=== PATIENT | female | born 1940 | race Caucasian/White ===

== ENCOUNTER 2016-12-20 07:46 | Inpatient (IN) | payer OTHER, MEDICARE ==
[~2016-12-20] VITALS: Ht 152.4 cm; Wt 79.2 kg
--- NOTE | ~2016-12-20 | HP ---
Unit #: [id number] #: [id number] Patient: JOEL FAJARDO [id number] [address] [address] [id number] I MR#: [id number] NAME: JOEL FAJARDO. ROOM: [facility] Age: 76 Sex: F Admission Date: 12/20/2016 : 1940 Attending Physician: Maksim Rubin M.D. Primary Care Physician: Bob Mercado M.D. HISTORY AND PHYSICAL HISTORY OF PRESENT ILLNESS This is a 76-year-old white female who presented to her primary care physician's office yesterday for routine visit. She had a recent complaint of substernal "chest discomfort" that was associated with dyspnea that lasted for a few minutes, up to 30 minutes. It has occurred off and on for the past six weeks. She reports exertional dyspnea when walking to her mailbox. She has palpitations, but no dizziness. EKG was done in the primary care physician's office that was abnormal. The EKG was reviewed by Dr. Rubin and collectively and he agreed that the patient needed to be admitted for further evaluation. From a cardiac standpoint the patient has had no prior cardiac history or testing. She reports a history of hypertension, hyperlipidemia and a remote history of nicotine abuse as risk factors. She also lives a sedentary lifestyle because of chronic back pain. She states she is unable to stand for any length of time. Her initial troponin is negative. Electrocardiogram shows no acute ischemic changes. Rhythm strip showed bigeminal premature ventricular complexes. PAST MEDICAL HISTORY 1. Two-dimensional echocardiogram 06/26/2011 shows an ejection fraction equal to 60%-65% with mild concentric left ventricular hypertrophy. There is mild mitral regurgitation and mild tricuspid regurgitation. Right ventricular systolic pressure 40 mmHg. 2. Hypertension. 3. Hyperlipidemia. 4. Obstructive sleep apnea, not on CPAP. 5. Chronic back pain. Gastroesophageal reflux disease. 6. Former smoker. PAST SURGICAL HISTORY 1. Hernia repair. 2. Cataract extraction. 3. Cholecystectomy. SOCIAL HISTORY The patient is . She quit smoking in 1998. She denies illicit drug and alcohol use. FAMILY HISTORY Negative for coronary artery disease. ALLERGIES No known drug allergies. Unit #: [id number] #: [id number] Patient: JOEL FAJARDO CURRENT MEDICATIONS 1. Protonix 40 mg daily, 2. Aspirin 81 mg daily at nighttime. 3. Multivitamin 1 tablet daily. 4. Aspirin 325 mg p.r.n. headache and back pain. 5. Norvasc 5 mg daily. 6. Carvedilol 6.25 mg b.i.d. 7. Hydralazine 25 mg b.i.d. 8. Lipitor 20 mg at nighttime. 9. Furosemide 20 mg 1-2 tablets p.r.n. swelling. 10. Risedronate 150 mg monthly. 11. Zyrtec 10 mg daily p.r.n. REVIEW OF SYSTEMS CONSTITUTIONAL: Negative for fever or chills. Has had no weight gain or weight loss. HEENT: No headache. No vision changes. No difficulty swallowing. No dizziness. CARDIOVASCULAR: Has chest discomfort as described in history of present illness. Reports palpitations. Denies paroxysmal nocturnal dyspnea or orthopnea. No syncope or near syncope. RESPIRATORY: Has dyspnea on exertion and that accompanies chest pain. No cough or hemoptysis. GASTROINTESTINAL: No abdominal pain, nausea, vomiting. No constipation. No melena. EXTREMITIES: Negative for lower extremity edema. PHYSICAL EXAMINATION GENERAL: This is a pleasant 76-year-old obese white female who is in on acute respiratory distress. VITALS: Blood pressure 136/104, heart rate 92, temperature 98.4, BMI 33. NECK: Trachea midline. No thyromegaly or carotid bruits. No jugular venous distension. LUNGS: Clear without rales, rhonchi or wheezes. HEART: S1 and S2. Heart sounds are normal. No murmurs or rubs or clicks. Regular rate and rhythm with occasional ectopic beat. ABDOMEN: Soft, obese, with bowel sounds present. No organomegaly. EXTREMITIES: Without leg edema. SKIN: Warm and dry. NEUROLOGIC: She is awake, alert and oriented. There are no focal weaknesses. DIAGNOSTIC STUDIES LABORATORY: Glucose 101, BUN 15, creatinine 0.9, sodium 141, potassium 3.9, troponin less than 0.03. Cholesterol 126, triglycerides 120, LDL 59, HDL 43, TSH 2.39. White blood cell count 11.7, hemoglobin 15.6, hematocrit 47.3, platelet count 198. CARDIOVASCULAR: Electrocardiogram normal sinus rhythm with a rate of 76 beats per minute, with questionable left atrial enlargement. ASSESSMENT 1. Exertional dyspnea. 2. Chest pain, probably ischemic in origin. 3. Hypertension. 4. Hyperlipidemia. 5. Chronic back pain. Obstructive sleep apnea. 6. Bigeminal premature ventricular complexes. Unit #: [id number] #: [id number] Patient: JOEL FAJARDO PLAN 1. The patient's symptoms are worrisome for ischemic heart disease. Given multiple risk factors, exertional dyspnea and chest discomfort, will advise the patient to undergo cardiac catheterization to evaluate her coronary anatomy. This has been discussed with the patient and her , including the risks and benefits and they are agreeable. Will schedule for today. 2. Will obtain two-dimensional echocardiogram to evaluate left ventricular systolic function. Lipid levels are controlled. 3. TSH is normal. 4. Further recommendations pending results of cardiac catheterization. Dictated by Carlin Lovell A.P.R.N. for Pavan Mackey M.D. AEP/gz TD: 12/20/2016 14:35 JOB #: [id number] CC: [facility] Bob Mercado M.D. HISTORY AND PHYSICAL Page 1 of 1 X Carlin Lovell APRN HISTORY AND PHYSICAL
--- NOTE | ~2016-12-20 | DS ---
Unit #: [id number] #: [id number] Patient: JOEL FAJARDO [id number] [address] [address] [id number] I MR#: [id number] NAME: JOEL FAJARDO. ROOM: [facility] Age: 76 Sex: F Admission Date: 12/20/2016 : 1940 Discharge Date: 12/25/2016 Attending Physician: Maksim Rubin M.D. Primary Care Physician: Bob Mercado M.D. DISCHARGE SUMMARY DISCHARGE DIAGNOSES 1. Chest pain, ruled out for acute coronary syndrome. 2. Left main coronary artery stenosis. 3. Left groin hematoma. DISCHARGE TRANSFER MEDICATIONS 1. Multivitamin one tab p.o. daily. 2. Aspirin 81 mg p.o. daily. 3. Oxycodone/acetaminophen 5/325 one to two tabs p.o. q.4 hours p.r.n. pain. 4. Protonix 40 mg p.o. daily. 5. Isosorbide mononitrate 30 mg p.o. daily. 6. Atorvastatin 80 mg p.o. daily at bedtime. 7. Carvedilol 6.25 mg p.o. b.i.d. 8. Zofran 4 mg IV q.4 p.r.n. nausea. 9. Mycostatin powder 15 g apply topical twice daily. 10. Claritin 10 mg p.o. daily. 11. Nitroglycerin 0.4 mg sublingual q.5 minutes x3 as needed p.r.n. for chest pain. 12. The patient's anticoagulation is currently on hold secondary to large left-sided hematoma. HOSPITAL COURSE This is a very pleasant 76-year-old female, who initially presented after seeing her primary care physician for a routine visit. She had complaints of substernal chest discomfort that was associated with dyspnea as well as exertional angina. Her episodes were lasting a few minutes up to 30 minutes. She had an EKG performed in the primary care's office that was abnormal. The EKG was reviewed by Dr. Rubin and agreed that the patient should be admitted for further evaluation. She had no prior cardiac history. The patient does have a history of hypertension, hyperlipidemia, and a remote history of nicotine abuse. Her symptoms were highly concerning for coronary artery disease and therefore the patient was advised to undergo cardiac catheterization to evaluate her coronary anatomy. She also had a 2D echocardiogram which showed a normal left ventricular systolic function of about 60%. The patient underwent cardiac catheterization by Dr. Recio on December 20, 2016, which showed a LV EF of 60%, [id number] calcification of all coronary arteries, 75% eccentric stenosis caused by plaque rupture in the distal left main. LAD, left circumflex, and right coronaries show no significant fixed stenosis. She was advised to consider coronary artery bypass surgery and refused any transfer to [facility] and wanted to be transferred to [facility]. In the interim, she was continued on aspirin and Lovenox as well as high-dose statin therapy and beta joelle. The following day Unit #: [id number] #: [id number] Patient: JOEL FAJARDO on December 21, she began to develop some left groin pain. Ultrasound and CT imaging were obtained which showed her to have a large left groin hematoma measuring maximally about 13.5 cm. Serial hemoglobin values have been trending downward. Vascular surgery was consulted to evaluate the patient and have reviewed all their scans. There was no suggestion of pseudoaneurysm. Ultrasound suggested no flow, so they suspect the hematoma will begin to resolve and the values will stabilize. Currently, her anticoagulation is on hold. At present, she is resting comfortably. Her pain has lessened in the groin area. She does have significant bruising noted on the lower abdomen. Her cardiac rhythm has been stable, and she has had no further complaints of chest pain. The patient is deemed stable for transfer today to [facility]. [facility] [address] Dr. Francisco, Vascular. DIAGNOSTIC STUDIES LABORATORY: Glucose 97, BUN 28, creatinine 0.7, sodium 136, potassium 4.4, chloride 105, CO2 of 29. Albumin 3.7. Troponins remain negative throughout her hospitalization. Cholesterol 126, triglycerides 120, LDL 59, HDL 43. TSH 2.39. Last coags were 10.9, INR 1. Hemoglobin 8, hematocrit 24, WBC 7.6, platelet count 148,000. Of note, her hemoglobin has remained stable for the last 12-18 hours and she has required no blood transfusions to this point. IMAGING: Ultrasound shows complex mass on the soft tissues of the left lower quadrant of the abdomen measuring up to 13.5 cm, most consistent with keeping with hematoma. CT of the abdomen and pelvis shows a large hematoma in the left groin extending medially into the subcutaneous fat area. Dimensions are at least 13.9 x 8.4 x 6.7. Status post cholecystectomy and prior abdominal hernia repair. Left renal cyst. Benign cyst in the right adnexa, previously evaluated with CT and ultrasound. Chronic compression fracture of T11. CARDIOVASCULAR: EKG: Last EKG shows normal sinus rhythm, rate of 76 beats per minute, possible left atrial enlargement, QTc interval 427 ms, no acute ischemic change is noted. PHYSICAL EXAMINATION GENERAL: This is a very pleasant 76-year-old female who appears older than her stated age. She is in no acute distress. VITAL SIGNS: Temperature is 97.9, respiratory rate 18-20, pulse 70s to 80s, blood pressure 115/43 to 127/48. BMI is 33. HEENT: Head is atraumatic, normocephalic. Pupils are equal and round. Mucous membranes are moist. NECK: Trachea is midline. No lymphadenopathy. No thyromegaly. Carotid upstrokes are normal. CARDIOVASCULAR: S1, S2. No murmur, gallop, or rub. LUNGS: Clear to auscultation. No adventitious breath sounds. No rales. No rhonchi. No wheezes. ABDOMEN: Obese, soft. Multiple areas of bruising noted. There is still some residual firmness in the left lower abdominal area secondary to hematoma. EXTREMITIES: Pulses are palpable. No clubbing, cyanosis, or edema. DISCHARGE INSTRUCTIONS Unit #: [id number] #: [id number] Patient: JOEL FAJARDO Patient has been seen and evaluated and has been deemed stable for discharge today for transfer to [facility] for recommended coronary artery bypass graft surgery. She has had no further complaints of chest pain. Cardiac rhythm has been stable here. Blood pressures are stable. She did develop a left groin large hematoma. This was evaluated by vascular surgery prior to discharge. The patient's hemoglobin has remained stable for the last 12-18 hours, and she has not required any blood transfusion. Discharge medications were reviewed. Her anticoagulation is currently on hold at this point, other than a baby aspirin. All this information has been reviewed with the family and the patient. She is agreeable and willing to proceed with transfer. I will notify the nurse practitioner of [facility] of her upcoming arrival in order to put orders in as well as consult CV surgery. Dictated by... Zia Oh TD: 12/25/2016 09:51 JOB #: [id number] DISCHARGE SUMMARY Page 1 of 1 X Peace Sterling APRN X DISCHARGE SUMMARY
--- NOTE | ~2016-12-20 | CO ---
Unit #: [id number] #: [id number] Patient: JOEL FAJARDO [id number] [address] [address] [id number] I MR#: [id number] NAME: JOEL FAJARDO. ROOM: [facility] Age: 76 Sex: F Admission Date: 12/20/2016 : 1940 Attending Physician: Maksim Rubin M.D. Primary Care Physician: Bob Mercado M.D. Consultation Date: 12/24/2016 CONSULTATION REPORT REASON FOR CONSULT Left groin hematoma. HISTORY OF PRESENT ILLNESS This is a 76-year-old female with a past medical history of chest discomfort who presented to the hospital. She ultimately underwent a heart catheterization via left groin approach on Tuesday, December 20, 2016. On the following day, Wednesday, December 21, 2016, she notified her nurse that she was having some left groin pain. Ultrasound and CT imaging was subsequently obtained which showed her to have a large left groin hematoma maximally measuring about 13.5 cm. Since then, serial hemoglobin values have been trending downward. She currently denies any pain from the hematoma other than occasionally when changing positions. PAST MEDICAL HISTORY 1. Hypertension. 2. Hyperlipidemia. 3. Sleep apnea. 4. Chronic back pain. 5. History of smoking. 6. Hernia repair. 7. Cataract surgery. 8. Cholecystectomy. ALLERGIES No known drug allergies. MEDICATIONS 1. Protonix 40 mg p.o. daily. 2. Aspirin 81 mg p.o. daily. 3. Multivitamin p.o. daily. 4. Claritin 10 mg daily. 5. Atorvastatin 80 mg daily. 6. Isosorbide mononitrate 30 mg p.o. daily. 7. Coreg 3.125 mg. 8. Nitroglycerin 0.4 mg p.r.n. 9. Oxycodone and acetaminophen 5/325 q.4 hours p.r.n. SOCIAL HISTORY Patient resides at home with her spouse. She denies alcohol or drug use. She smoked up until 1998 at which time she quit along with her sister. FAMILY HISTORY No known history of heart attack or stroke. Unit #: [id number] #: [id number] Patient: SCOTTY,JOEL S REVIEW OF SYSTEMS Positive for chest discomfort on admission, resolved. Positive for dyspnea on exertion, resolved with current bedrest and two liters nasal cannula oxygen. Positive for generalized bruising. Otherwise, review of systems was completed and otherwise negative unless noted. PHYSICAL EXAMINATION VITAL SIGNS: Temperature 98.9, heart rate 86, respiratory rate 18, and blood pressure 113/42. GENERAL APPEARANCE: Obese female, well developed, well nourished, in no acute distress. Good mood, appropriate affect, and answers questions appropriately. HEENT: Normocephalic. Pupils equal, round, and reactive to light. NECK: No carotid bruits heard on auscultation. CARDIAC: Regular rate and rhythm. LUNGS: Clear to auscultation bilateral upper lobes with diminished bilateral bases. Two liters nasal cannula oxygenation. ABDOMEN: Large, obese abdomen. Firm lump palpable in the left groin. Generalized bruising of the lower abdomen extending down into her pannus. MUSCULOSKELETAL: Moves all extremities with full range of motion. VASCULAR: Palpable radial pulses bilaterally. Palpable femoral pulses bilaterally. Easily palpable bilateral pedal pulses. INTEGUMENTARY: Again, as noted, generalized bruising of the lower abdomen. Patchy bruising of the upper extremities as well. Extremities are warm and dry. NEUROLOGIC: Cranial nerves II-XII grossly intact. Normal strength and sensation bilaterally. PSYCHIATRIC: Oriented to person, place, and time. Demonstrates good judgment and reason. DIAGNOSTIC STUDIES LABORATORY: Sodium 137, potassium 4.1, chloride 105, CO2 of 28, BUN 40, and creatinine 0.9 with an estimated GFR of 62.2. Hemoglobin 8.1, hematocrit 24, WBC 8.8, and platelets 129,000. Hemoglobin trend: Heart catheterization on December 20 patient's hemoglobin measured 15.6 at that time. On December 22, 2016, at 5:30 a.m., hemoglobin had dropped to 11.5. On December 22 at 1 p.m. hemoglobin measured 11.5 again and the following day, December 23, a.m. labs had a hemoglobin measuring 9.5. By the afternoon of December 23, 2016, hemoglobin measured 8.8, and today, December 24, 2016, a.m. labs had a hemoglobin measuring 8.1. IMAGING: Ultrasound of the abdomen on December 22, 2016, demonstrates a complex mass in the soft tissues of the lower quadrant of the abdomen measuring 13.5 cm most consistent with hematoma. The left lower quadrant mass measures 13.5 x 6 x 9 cm with no internal flow. The structure is separate from major inguinal vessels. CT of the abdomen on December 23, 2016, demonstrates a large hematoma in the left groin extending medially into the subcutaneous fat. Dimensions are at least 13.9 x 8.4 x 6.7. ASSESSMENT AND PLAN Left groin hematoma. Currently, anticoagulation is on hold. Will continue to trend hemoglobin values to monitor the hematoma. Again, ultrasound suggests no flow, so I suspect that the hematoma will begin to resolve and hemoglobin values will stabilize. Will continue to follow to trend hemoglobin levels. Will discuss with on-call physician. Dictated by... Tristian Mccabe APRN for Unit #: [id number] #: [id number] Patient: JOEL FAJARDO M.D. SS/mark TD: 12/24/2016 18:44 JOB #: [id number] CONSULTATION REPORT Page 1 of 1 X X CONSULTATION REPORT
--- NOTE | ~2016-12-20 | EKG ---
PATIENT: JOEL FAJARDO UNIT #: [id number] Ventricular Rate: 103 BPM Atrial Rate: 103 BPM P-R Interval: 122 ms QRS Duration: 88 ms Q-T Interval: 342 ms QTC Calculation(Bezet): 448 ms P [place]: 76 degrees Calculated R [place]: 73 degrees Calculated T [place]: 76 degrees Diagnosis Line: Sinus tachycardia Diagnosis Line: Possible Left atrial enlargement Diagnosis Line: Borderline ECG Diagnosis Line: When compared with ECG of 21-DEC-2016 10:16, Diagnosis Line: (unconfirmed) Diagnosis Line: Aberrant conduction is no longer Present Diagnosis Line: Confirmed by BRUCE ASHLEY MD ([id number]) on 12/24/2016 Diagnosis Line: 10:49:17 PM INTERPRETING MD: DION SEPULVEDA
--- NOTE | ~2016-12-20 | CT4 ---
[facility] A Service of [facility] RADIOLOGY TEXT RESULTS PATIENT: JOEL FAJARDO LOCATION: [facility] 561-01 : 40 UNIT #: [id number] AGE: [address]: Domenico Rubin MD SEX: F ORDER DR: [id number] [facility] [address] [facility] [place], [place] [address] [id number] I MR#: [id number] Acc #: [id number] NAME: JOEL FAJARDO : 1940 SEX: F STUDY DATE/TIME: 12/23/2016 17:33 UNIT: [facility] ROOM: [facility] STUDY DESCRIPTION: CT Abd and Pelv Wo Cont Attending Physician: Maksim Rubin M.D. Ordering Physician: Clifford Samaniego M.D. Primary Care Physician: Bob Mercado M.D. MEDICAL IMAGING REPORT This report is preliminary unless electronic signature is present EXAM Abdomen and pelvis CT, no contrast, 12/23/2016. INDICATION Left-sided abdominal pain since December 20. Cardiac cath December 20. TECHNIQUE Noncontrast CT of the abdomen and pelvis was performed and compared with 04/01/2013. This CT exam was performed with one or more of the following radiation dose reduction techniques: automatic exposure control, adjustment of mA and/or kV according to patient size, and iterative reconstruction. FINDINGS CT ABDOMEN: Exam markedly degraded by noncontrast technique. Included lung bases demonstrate pleural thickening in the peripheral right lower lobe. No effusion. Aorta demonstrates advanced atherosclerotic change but no aneurysm. There is a small hiatal hernia. Spleen, adrenal glands, and pancreas are unremarkable and the gallbladder is surgically absent. Liver demonstrates a stable cyst in the posterior left hepatic lobe. There is evidence of prior anterior abdominal wall hernia repair procedures. No hydronephrosis of either kidney or radiopaque stone on either side. Tiny left renal cyst unchanged. CT PELVIS: Bladder unremarkable. Uterus atrophic or surgically absent. There is a 3.4 cm cystic mass in the right adnexa, likely a benign postmenopausal cyst. This has been previously evaluated with ultrasound as recently as 2014 and demonstrated benign features. No drainable fluid collection in the pelvis. There is diverticulosis of the colon. Bowel demonstrates no obstruction and the appendix is normal. There is a left inguinal hernia that contains fat. [facility] A Service of [facility] RADIOLOGY TEXT RESULTS PATIENT: JOEL FAJARDO LOCATION: [facility] 561-01 : 40 UNIT #: [id number] AGE: [address]: Domenico Rubin MD SEX: F ORDER DR: There is a multilobular hematoma in the left groin extending from left to right and crossing the midline at the level of the symphysis pubis and extending inferior to the pubic symphysis. Transverse dimensions are on the order of 13.9 x 0.4 cm AP and extends over a craniocaudal distance of 6.7 cm. There is stranding adjacent to the hematoma. Suggest correlation with hemoglobin and hematocrit levels. The hematoma primarily localizes to the subcutaneous fat. Osseous structures demonstrate degenerative change of the thoracolumbar spine. There is a chronic compression fracture of T11. IMPRESSION 1. There is a large hematoma in the left groin extending medially into the subcutaneous fat. Dimensions are at least 13.9 x 8.4 x 6.7 cm. Suggest correlation with hemoglobin and hematocrit levels as CT performed without contrast cannot distinguish between the presence or absence of ongoing or active hemorrhage. Findings were called to the patient's nurse at the time of this dictation. 2. Additional incidental findings include the following. 3. Status post cholecystectomy and prior abdominal hernia repair procedures. 4. Left renal cyst. 5. There is a benign cyst in the right adnexa, previously evaluated with CT and ultrasound. 6. Chronic compression fracture of T11. STAT * RESULT Dictated by... Chilo Young M.D. THIS IS AN ELECTRONICALLY VERIFIED REPORT Chilo Young M.D. at 12/23/2016 11:19 PM SIMI/eileen TD: 12/23/2016 18:41 JOB #: [id number] MEDICAL IMAGING REPORT Page 1 of 1 COPY
--- NOTE | ~2016-12-20 | US8 ---
[facility] A Service of [facility] RADIOLOGY TEXT RESULTS PATIENT: JOEL FAJARDO LOCATION: [facility] 561 : 40 UNIT #: [id number] AGE: [address]: Domenico Rubin MD SEX: F ORDER DR: [id number] [facility] [address] [place], [place] [address] [id number] I MR#: [id number] Acc #: [id number] NAME: JOEL FAJARDO : 1940 SEX: F STUDY DATE/TIME: 12/22/2016 10:00 UNIT: [facility] ROOM: [facility] STUDY DESCRIPTION: US Abdominal Wall/Quadrant Attending Physician: Domenico Rubin Ordering Physician: Maksim Rubin M.D. Primary Care Physician: Bob Mercado M.D. MEDICAL IMAGING REPORT This report is preliminary unless electronic signature is present EXAM Abdominal soft tissue ultrasound INDICATION Heart catheterization last Friday. Pain and bruising in the left lower quadrant of the abdomen for the past 2 days. Observation for hematoma. PROCEDURE Dukes-scale, Doppler and spectral imaging of the left lower quadrant and left inguinal region in the area of concern. B COMPARISON None. FINDINGS Left lower quadrant of the abdomen there is a 13.5 x 6.0 x 9 cm complex hypoechoic mass with no internal flow. This structure is separate from the major inguinal vessels. IMPRESSION Complex mass in the soft tissues of the left lower quadrant of the abdomen measures up to 13.5 cm most in keeping with a hematoma. Dictated by... Perry Cui M.D. THIS IS AN ELECTRONICALLY VERIFIED REPORT Perry Cui M.D. at 12/23/2016 8:15 AM EMMANUELLE/shanel TD: 12/22/2016 10:44 JOB #: [id number] [facility] A Service of [facility] RADIOLOGY TEXT RESULTS PATIENT: JOEL FAJARDO LOCATION: [facility] 561 : 40 UNIT #: [id number] AGE: [address]: Domenico Rubin MD SEX: F ORDER DR: MEDICAL IMAGING REPORT Page 1 of 1 COPY
--- NOTE | ~2016-12-20 | EKG ---
PATIENT: JOEL FAJARDO UNIT #: [id number] Ventricular Rate: 81 BPM Atrial Rate: 81 BPM P-R Interval: 138 ms QRS Duration: 92 ms Q-T Interval: 388 ms QTC Calculation(Bezet): 450 ms P [place]: 61 degrees Calculated R [place]: 70 degrees Calculated T [place]: 17 degrees Diagnosis Line: Sinus rhythm Premature ventricular complexes Diagnosis Line: Low voltage QRS Diagnosis Line: Borderline ECG Diagnosis Line: When compared with ECG of 20-DEC-2016 11:57, Diagnosis Line: Premature ventricular complexes is now Present Diagnosis Line: Confirmed by BRUCE ASHLEY MD ([id number]) on 12/24/2016 Diagnosis Line: 6:59:55 AM INTERPRETING MD: DION SEPULVEDA
--- NOTE | ~2016-12-20 | EKG ---
PATIENT: JOEL FAJARDO UNIT #: [id number] Ventricular Rate: 76 BPM Atrial Rate: 76 BPM P-R Interval: 144 ms QRS Duration: 84 ms Q-T Interval: 380 ms QTC Calculation(Bezet): 427 ms P [place]: 75 degrees Calculated R [place]: 68 degrees Calculated T [place]: 52 degrees Diagnosis Line: Normal sinus rhythm Diagnosis Line: Possible Left atrial enlargement Diagnosis Line: Borderline ECG Diagnosis Line: When compared with ECG of 27-JUN-2011 06:28, Diagnosis Line: Premature ventricular complexes are no longer Diagnosis Line: Present Diagnosis Line: Confirmed by BRUCE ASHLEY MD ([id number]) on 12/21/2016 Diagnosis Line: 8:36:13 AM INTERPRETING MD: DION SEPULVEDA
[~2016-12-20 07:46] MED LIST: ACETAMINOPHEN PO; ASPIRIN81 M1 PO; CERTAGEN PO; CRESTOR PO; NORVASC PO; REGLAN PO; ULTRACET TABLET1 TAB PO; VIT E PO; VITAMIN C PO; ZANTAC PO; [UNRECOGNIZED DRUG - OTHER]
[2016-12-20 11:50] LABS: HEMATOCRIT 47.3 % (35.0-45.0); HEMOGLOBIN 15.6 gm/dL (12.0-16.0); MEAN CELL VOLUME 87.2 FL (83-96); MEAN CORPUSCULAR HEMOGLOBIN 28.7 PG (28-34); MEAN CORPUSCULAR HGB CONC 32.9 g/dL (30-36); MEAN PLATELET VOLUME 9.1 FL (6.5-11.5); RED BLOOD COUNT 5.43 X10e (3.90-5.30); RED CELL DISTRIBUTION WIDTH 14.6 % (11.0-15.5); WHITE BLOOD COUNT 11.7 X10e3 (4.0-10.5)
[2016-12-20] MEDS ORDERED: PANTOPRAZOLE SO40 MG PO (11:58)
[2016-12-20] MEDS ORDERED: ASPIRIN81 M2 PO (12:12)
[2016-12-20] MEDS ORDERED: MULTI VITAMIN1 EACH PO (12:13)
[2016-12-20 12:17] LABS: CK TOTAL 47 IU/L (26-140)
[2016-12-20] MEDS ORDERED: BAYER ASPIRIN325 M1 PO (12:21)
[2016-12-20] MEDS ORDERED: NORVASC PO (12:22)
[2016-12-20 12:35] LABS: ALBUMIN SERUM 3.7 g/dL (3.5-5.0); BILIRUBIN,TOTAL 0.8 mg/dL (0.2-2.0); BUN/CREATININE RATIO 16.66; CALCIUM SERUM 8.9 mg/dL (8.4-10.2); CREATININE SERUM 0.9 mg/dL (0.6-1.4); GLOM FILT RATE Estimated 62.2 mL/min (>60); POTASSIUM 3.9 mmol/L (3.5-5.1); PROTEIN TOTAL SERUM 6.4 g/dL (6.0-8.3)
[2016-12-20] MEDS ORDERED: COREG6.25 MG PO (12:55)
[2016-12-20] MEDS ORDERED: HYDRALAZINE HCL25 MG PO (12:56)
[2016-12-20] MEDS ORDERED: LIPITOR20 MG PO (12:57)
[2016-12-20] MEDS ORDERED: LASIX20 MG PO (13:00)
[2016-12-20] MEDS ORDERED: RISEDRONATE SO150 MG PO (13:01)
[2016-12-20] MEDS ORDERED: ZYRTEC10 M2 PO (13:02)
[2016-12-20 15:41] LABS: PARTIAL THROMBOPLASTIN TIME 27.2 SECONDS (23.5-31.3); PROTHROMBIN TIME (PATIENT) 10.9 SECONDS (10.0-11.7)
[2016-12-20 19:48] LABS: CK TOTAL 55 IU/L (26-140)
[2016-12-21 10:17] LABS: ARTERIAL BLD GAS O2 SATURATION 92.9 % (90.0-100.0); ARTERIAL BLOOD GAS CARBOXY HB 1.2 %sat (0.0-9.0); ARTERIAL BLOOD GAS HCO3 29.4 mmol/L; ARTERIAL BLOOD GAS MET HB 0.9 %sat (0.0-2.0); ARTERIAL BLOOD GAS pH 7.333 (7.350-7.450)
[2016-12-21 10:18] LABS: ARTERIAL BLOOD GAS ALLEN TEST NORMAL; ARTERIAL BLOOD GAS ART SITE LEFT RADIAL; ARTERIAL BLOOD GAS DELIVERY NASAL CANNULA; ARTERIAL BLOOD GAS PCO2 55.5 mmHg (35.0-45.0); ARTERIAL BLOOD GAS PO2 73.9 mmHg (80.0-100); ARTERIAL DRAW? YES
[2016-12-21 12:03] LABS: %MB 2.5 % (0.0-4.0); MB 3.7 ng/ml
[2016-12-21 18:03] LABS: %MB 2.6 % (0.0-4.0); MB 6.8 ng/ml
[2016-12-22 06:11] LABS: HEMATOCRIT 34.1 % (35.0-45.0); MEAN CELL VOLUME 87.9 FL (83-96); MEAN CORPUSCULAR HEMOGLOBIN 29.6 PG (28-34); MEAN CORPUSCULAR HGB CONC 33.7 g/dL (30-36); MEAN PLATELET VOLUME 8.9 FL (6.5-11.5); RED BLOOD COUNT 3.88 X10e (3.90-5.30); RED CELL DISTRIBUTION WIDTH 14.3 % (11.0-15.5); WHITE BLOOD COUNT 10.6 X10e3 (4.0-10.5)
[2016-12-22 06:14] LABS: HEMOGLOBIN 11.5 gm/dL (12.0-16.0)
[2016-12-22 07:01] LABS: PROTHROMBIN TIME (PATIENT) 10.9 SECONDS (10.0-11.7)
[2016-12-22 09:10] LABS: BUN/CREATININE RATIO 32.72; CALCIUM SERUM 7.5 mg/dL (8.4-10.2); CREATININE SERUM 1.1 mg/dL (0.6-1.4); GLOM FILT RATE Estimated 48.7 mL/min (>60); POTASSIUM 4.1 mmol/L (3.5-5.1)
[2016-12-22 13:21] LABS: HEMATOCRIT 35.6 % (35.0-45.0); HEMOGLOBIN 11.5 gm/dL (12.0-16.0); MEAN CELL VOLUME 88.6 FL (83-96); MEAN CORPUSCULAR HEMOGLOBIN 28.6 PG (28-34); MEAN CORPUSCULAR HGB CONC 32.3 g/dL (30-36); MEAN PLATELET VOLUME 8.9 FL (6.5-11.5); RED BLOOD COUNT 4.02 X10e (3.90-5.30); RED CELL DISTRIBUTION WIDTH 14.3 % (11.0-15.5)
[2016-12-23 07:44] LABS: BUN/CREATININE RATIO 44.44; CALCIUM SERUM 7.7 mg/dL (8.4-10.2); CREATININE SERUM 0.9 mg/dL (0.6-1.4); GLOM FILT RATE Estimated 62.2 mL/min (>60); POTASSIUM 4.1 mmol/L (3.5-5.1)
[2016-12-23 09:31] LABS: BASOPHIL# 0.1 X10e3 (0-0.3); BASOPHIL% 0.5 % (0-2.5); EOSINOPHIL# 0.1 X10e3 (0-0.7); EOSINOPHIL% 0.8 % (0.0-7.0); HEMATOCRIT 29.2 % (35.0-45.0); LYMPHOCYTE# 0.8 X10e3 (1.0-3.5); LYMPHOCYTE% 6.9 % (17.0-45.0); MEAN CELL VOLUME 87.7 FL (83-96); MEAN CORPUSCULAR HEMOGLOBIN 28.6 PG (28-34); MEAN CORPUSCULAR HGB CONC 32.6 g/dL (30-36); MEAN PLATELET VOLUME 8.8 FL (6.5-11.5); MONOCYTE# 0.9 X10e3 (0-1.0); NEUTROPHIL# 9.9 X10e3 (1.5-7.1); NEUTROPHIL% 83.8 % (40-75); PLATELET COUNT 161 X10e3 (140-420); RED BLOOD COUNT 3.33 X10e (3.90-5.30); WHITE BLOOD COUNT 11.8 X10e3 (4.0-10.5)
[2016-12-23 09:43] LABS: DIFF IND NO; HEMOGLOBIN 9.5 gm/dL (12.0-16.0)
[2016-12-23 15:24] LABS: HEMATOCRIT 26.3 % (35.0-45.0); HEMOGLOBIN 8.8 gm/dL (12.0-16.0)
[2016-12-23 17:11] LABS: HEMATOCRIT 27.1 % (35.0-45.0); HEMOGLOBIN 8.8 gm/dL (12.0-16.0); MEAN CELL VOLUME 87.3 FL (83-96); MEAN CORPUSCULAR HEMOGLOBIN 28.5 PG (28-34); MEAN CORPUSCULAR HGB CONC 32.7 g/dL (30-36); MEAN PLATELET VOLUME 8.7 FL (6.5-11.5); RED BLOOD COUNT 3.1 X10e (3.90-5.30); RED CELL DISTRIBUTION WIDTH 13.8 % (11.0-15.5); WHITE BLOOD COUNT 11.5 X10e3 (4.0-10.5)
[2016-12-24 05:43] LABS: BASOPHIL% 0.5 % (0-2.5); EOSINOPHIL# 0.3 X10e3 (0-0.7); EOSINOPHIL% 3.8 % (0.0-7.0); HEMOGLOBIN 8.1 gm/dL (12.0-16.0); LYMPHOCYTE# 1.2 X10e3 (1.0-3.5); LYMPHOCYTE% 13.1 % (17.0-45.0); MEAN CELL VOLUME 87.2 FL (83-96); MEAN CORPUSCULAR HEMOGLOBIN 29.5 PG (28-34); MEAN CORPUSCULAR HGB CONC 33.9 g/dL (30-36); MEAN PLATELET VOLUME 8.7 FL (6.5-11.5); MONOCYTE# 0.9 X10e3 (0-1.0); MONOCYTE% 9.9 % (3.0-12.0); NEUTROPHIL# 6.4 X10e3 (1.5-7.1); NEUTROPHIL% 72.7 % (40-75); PLATELET COUNT 129 X10e3 (140-420); RED BLOOD COUNT 2.75 X10e (3.90-5.30); WHITE BLOOD COUNT 8.8 X10e3 (4.0-10.5)
[2016-12-24 05:45] LABS: DIFF IND NO
[2016-12-24 12:30] LABS: HEMATOCRIT 24.1 % (35.0-45.0)
[2016-12-24 13:19] LABS: BUN/CREATININE RATIO 41.42; CREATININE SERUM 0.7 mg/dL (0.6-1.4); GLOM FILT RATE Estimated 84.2 mL/min (>60); POTASSIUM 4.1 mmol/L (3.5-5.1)
[2016-12-25 06:03] LABS: MEAN CELL VOLUME 87.6 FL (83-96); MEAN CORPUSCULAR HEMOGLOBIN 29.1 PG (28-34); MEAN CORPUSCULAR HGB CONC 33.2 g/dL (30-36); MEAN PLATELET VOLUME 8.7 FL (6.5-11.5); RED BLOOD COUNT 2.74 X10e (3.90-5.30); RED CELL DISTRIBUTION WIDTH 13.8 % (11.0-15.5); WHITE BLOOD COUNT 7.6 X10e3 (4.0-10.5)
[2016-12-25 06:34] LABS: CALCIUM SERUM 8.1 mg/dL (8.4-10.2); CREATININE SERUM 0.7 mg/dL (0.6-1.4); GLOM FILT RATE Estimated 84.2 mL/min (>60); POTASSIUM 4.4 mmol/L (3.5-5.1)
== END 2016-12-25 09:48 | disposition short-term general hospital (02) | DRG 287 ==
LOC: C5B 08:00 → UNDOADMIN 08:00 → C5B 09:27 → UNDOADMIN 09:27 → C5B 12-25 09:48
PROVIDERS: Internal Medicine Cardiovascular Disease; Nurse Practitioner; Surgery Vascular Surgery
PROC: 4A023N7 Measurement of Cardiac Sampling and Pressure, Left Heart, Percutaneous Approach (ICD-10-PCS; principal; 2016-12-20)
PROC: B2111ZZ Fluoroscopy of Multiple Coronary Arteries using Low Osmolar Contrast (ICD-10-PCS; 2016-12-20)
PROC: B2151ZZ Fluoroscopy of Left Heart using Low Osmolar Contrast (ICD-10-PCS; 2016-12-20)
DX: I25.110 Atherosclerotic heart disease of native coronary artery with unstable angina pectoris (principal); I08.1 Rheumatic disorders of both mitral and tricuspid valves; D50.0 Iron deficiency anemia secondary to blood loss (chronic); L76.32 Postprocedural hematoma of skin and subcutaneous tissue following other procedure; I10 Essential (primary) hypertension; E78.5 Hyperlipidemia, unspecified; G47.33 Obstructive sleep apnea (adult) (pediatric); M54.9 Dorsalgia, unspecified; G89.29 Other chronic pain; Y84.0 Cardiac catheterization as the cause of abnormal reaction of the patient, or of later complication, without mention of misadventure at the time of the procedure; Y92.239 Unspecified place in hospital as the place of occurrence of the external cause; E66.8 Other obesity; Z88.2 Allergy status to sulfonamides; Z90.49 Acquired absence of other specified parts of digestive tract; Z87.891 Personal history of nicotine dependence; Z68.33 Body mass index [BMI] 33.0-33.9, adult
CPT/HCPCS: 36600; 74176; 76705; 80048; 80053; 80061; 82550; 82553; 82803; 84443; 84484; 85014; 85018; 85025; 85027; 85610; 85730; 86850; 86900; 86901; 86923; 93005; 93306; 94760; C1769; C1887; C1894; J1644; J1650; J2250; J2405; J3010